=== PATIENT | male | born 1990 | race Two or more races ===

== ENCOUNTER 2021-08-04 10:56 | Emergency (ER) | payer BC ==
[~2021-08-04] VITALS: Ht 195.6 cm; Wt 112.0 kg
[2021-08-04 11:00] VITALS: BP 104/73
--- NOTE | 2021-08-04 11:00 | NUR ---
SEEN AND EXAMINED BY .
[2021-08-04] MEDS ORDERED: IBUP-1955 PO (11:08)
== END 2021-08-04 12:54 | disposition home or self-care (01) ==
LOC: ER 11:10
DX: S63.682A Other sprain of left thumb, initial encounter (principal); W23.0XXA Caught, crushed, jammed, or pinched between moving objects, initial encounter; Y93.67 Activity, basketball; Y92.310 Basketball court as the place of occurrence of the external cause; Y99.8 Other external cause status
CPT/HCPCS: 73130-TC

== ENCOUNTER 2022-12-22 14:46 | Emergency (ER) | payer BC ==
[~2022-12-22] VITALS: Ht 195.6 cm; Wt 113.4 kg
[~2022-12-22 14:46] MED LIST: IBUP-1955 PO
[2022-12-22 15:08] VITALS: BP 113/78; TEMP 98.1; O2SAT 100
[2022-12-22] MEDS ORDERED: IBUP-1955 PO (16:33)
== END 2022-12-22 16:48 | disposition home or self-care (01) ==
LOC: ER 14:50
DX: S83.8X1A Sprain of other specified parts of right knee, initial encounter (principal); Z79.899 Other long term (current) drug therapy; W18.39XA Other fall on same level, initial encounter; Y93.67 Activity, basketball; Y92.89 Other specified places as the place of occurrence of the external cause; Y99.8 Other external cause status
CPT/HCPCS: 73564-TC